=== PATIENT | female | born 1955 | race Caucasian/White ===

== ENCOUNTER 2016-06-17 09:45 | Inpatient (IN) | payer OTHER ==
[~2016-06-17] VITALS: Ht 157.5 cm; Wt 93.1 kg
[~2016-06-17 09:45] MED LIST: ALEVE220 M1 PO; ALL DAY ALLERGY10 M3 PO; ASPIRIN325 MG PO; CHANTIX0.5 MG PO; FLEXERIL 10 MG10 MG PO; KEPPRA250 MG PO; LISINOPRIL20 MG PO; MELOXICAM15 MG PO; PERCOCET 10-321 EACH PO; VENTOLIN HFA 66.7 GM INH; VENTOLIN/PROVE0.5 ML INH; VITAMIN D5000 UNIT PO; XARELTO10 MG PO; ZOFRAN4 MG PO
[2016-07-15] MEDS ORDERED: MOBIC15 MG PO (07:01)
[2016-07-15] MEDS ORDERED: SINGULAIR10 MG PO (07:02)
[2016-07-16 15:00] LABS: HEMOGLOBIN 11.6 gm/dl (12.3-15.3); RED BLOOD COUNT 3.95 M/UL (4.00-5.10); WHITE BLOOD COUNT 11.2 K/UL (4.5-11.0)
[2016-07-16 15:15] LABS: BUN/CREATININE RATIO 18 (0-10)
[2016-07-17] MEDS ORDERED: ELIQUIS2.5 MG PO (13:39)
[2016-07-17] MEDS ORDERED: PERCOCET 10-321 EACH PO (13:40)
[2016-07-17 14:05] LABS: HEMOGLOBIN 11.6 gm/dl (12.3-15.3); RED BLOOD COUNT 3.94 M/UL (4.00-5.10); WHITE BLOOD COUNT 10.7 K/UL (4.5-11.0)
[2016-07-17 14:26] LABS: BUN/CREATININE RATIO 25 (0-10)
== END 2016-07-17 18:42 | disposition home or self-care (01) | DRG 470 ==
LOC: ZOBSOF 07-15 06:02 → M/S 07-15 18:30
PROVIDERS: ADMIT Orthopaedic Surgery
PROC: 0SRC0J9 Replacement of Right Knee Joint with Synthetic Substitute, Cemented, Open Approach (ICD-10-PCS; principal; 2016-07-15 08:15)
DX: M17.11 Unilateral primary osteoarthritis, right knee (principal); I10 Essential (primary) hypertension; E55.9 Vitamin D deficiency, unspecified; E03.9 Hypothyroidism, unspecified; Z96.652 Presence of left artificial knee joint; M41.9 Scoliosis, unspecified; F17.210 Nicotine dependence, cigarettes, uncomplicated; I95.81 Postprocedural hypotension; R55 Syncope and collapse
CPT/HCPCS: 36415; 73560; 80048; 80051; 82550; 82553; 82565; 84484; 84520; 85025; 86850; 86900; 86901; 93005; 94664; 97116; 97530; 97535; C1776; J0461; J0690; J2250; J2270; J2795; J3010; J7030; J7050; J7120

== ENCOUNTER → 2016-07-01 | Outpatient (CLI) | payer OTHER ==
[~2016-07-01] MED LIST changes: +ELIQUIS2.5 MG PO; +MOBIC15 MG PO; +SINGULAIR10 MG PO
[2016-07-01 10:25] LABS: HEMOGLOBIN 14.7 gm/dl (12.3-15.3); RED BLOOD COUNT 5.04 M/UL (4.00-5.10); WHITE BLOOD COUNT 8.5 K/UL (4.5-11.0)
[2016-07-01 10:49] LABS: BUN/CREATININE RATIO 38 (0-10)
== END ==
LOC: OPSV2 06-09 08:30
PROVIDERS: Orthopaedic Surgery
DX: Z01.810 Encounter for preprocedural cardiovascular examination (principal); Z01.812 Encounter for preprocedural laboratory examination; M17.11 Unilateral primary osteoarthritis, right knee; I10 Essential (primary) hypertension; Z88.6 Allergy status to analgesic agent; Z88.3 Allergy status to other anti-infective agents
CPT/HCPCS: 36415; 80048; 81001; 85025; 87081; 93005

== ENCOUNTER → 2020-03-13 | Outpatient (CLI) | payer MEDICARE, OTHER ==
[~2020-03-13] MED LIST changes: +ARTHRITIS PAIN100 GM TP; +ASPIRIN 325MG325 MG PO; +AUGMENTIN 875-1 EACH PO; +AZITHROMYCIN500 MG PO; +DOXYCYCLINE HY100 M2 PO; +ESSENTIAL DAIL1 EACH PO; +HYDROCHLOROTH12.5 MG PO; +HYDROCODON-ACE1 EAC4 PO; +INCRUSE ELLI62.5 MCG INH; +LISINOPRIL40 MG PO; +MIRALAX17 GM PO; +NAPROXEN 250 M250 MG PO; +NORCO 5-325 TA1 EACH PO; +PREDNISONE20 MG PO; +RELAFEN 750 MG750 MG PO; +SPIRIVA18 MCG INH; +VITAMIN D3100 MCG PO; +ZITHROMAX250 MG PO
[2020-03-13 10:00] LABS: HEMOGLOBIN 15.4 gm/dl (12.3-15.3); RED BLOOD COUNT 4.9 M/UL (4.00-5.10); WHITE BLOOD COUNT 8.2 K/UL (4.5-11.0)
[2020-03-13 10:14] LABS: BUN/CREATININE RATIO 41 (0-10)
== END ==
LOC: OPSV2 09:00
PROVIDERS: Anesthesiology; Obstetrics & Gynecology
DX: Z01.812 Encounter for preprocedural laboratory examination (principal); N81.6 Rectocele; I10 Essential (primary) hypertension
CPT/HCPCS: 36415; 71046; 80048; 81001; 85025; 87086

== ENCOUNTER 2020-03-21 08:03 | Observation (INO) | payer MEDICARE, OTHER ==
[~2020-03-21] VITALS: Ht 160 cm; Wt 83.9 kg
[~2020-03-21 08:03] MED LIST changes: -ARTHRITIS PAIN100 GM TP; -DOXYCYCLINE HY100 M2 PO; -HYDROCHLOROTH12.5 MG PO; -HYDROCODON-ACE1 EAC4 PO; -INCRUSE ELLI62.5 MCG INH; -LISINOPRIL40 MG PO; -VITAMIN D3100 MCG PO
[2020-03-21] MEDS ORDERED: ARTHRITIS PAIN100 GM TP (08:41)
[2020-03-21] MEDS ORDERED: INCRUSE ELLI62.5 MCG INH (08:41)
[2020-03-21] MEDS ORDERED: LISINOPRIL40 MG PO (08:42)
[2020-03-21] MEDS ORDERED: HYDROCHLOROTH12.5 MG PO (08:42)
[2020-03-21] MEDS ORDERED: ALEVE220 M1 PO (08:43)
[2020-03-21] MEDS ORDERED: VITAMIN D3100 MCG PO (08:43)
[2020-03-21] MEDS ORDERED: HYDROCODON-ACE1 EAC4 PO (11:57)
[2020-03-22 12:56] LABS: HEMOGLOBIN 14.3 gm/dl (12.3-15.3)
[2020-03-22 13:19] LABS: BUN/CREATININE RATIO 29 (0-10)
[2020-03-22] MEDS ORDERED: DOXYCYCLINE HY100 M2 PO (14:57)
== END 2020-03-23 16:59 | disposition home or self-care (01) ==
LOC: OR 08:03 → OB 12:59 → OR 03-22 12:32 → OB 03-23 16:59
PROVIDERS: Nurse Practitioner Family; ADMIT Obstetrics & Gynecology
DX: N81.3 Complete uterovaginal prolapse (principal); I10 Essential (primary) hypertension; E78.5 Hyperlipidemia, unspecified; F17.210 Nicotine dependence, cigarettes, uncomplicated; I25.2 Old myocardial infarction; J18.9 Pneumonia, unspecified organism; E66.9 Obesity, unspecified; M19.012 Primary osteoarthritis, left shoulder; M19.011 Primary osteoarthritis, right shoulder; Z79.899 Other long term (current) drug therapy; Z83.3 Family history of diabetes mellitus; Z82.49 Family history of ischemic heart disease and other diseases of the circulatory system; Z82.3 Family history of stroke; Z20.822 Contact with and (suspected) exposure to COVID-19; Z68.34 Body mass index [BMI] 34.0-34.9, adult
CPT/HCPCS: 36415; 71045; 80048; 85014; 85018; 88341; 88342; 88344; 94640; 94664; 94760; 96374; 96375; 96376; C1769; C1771; G0378; J0456; J0690; J0696; J1100; J1170; J1885; J2001; J2250; J2405; J2550; J2704; J2795; J2930; J3010; J7030; J7120; U0002

== ENCOUNTER → 2020-06-01 | Outpatient (CLI) | payer MEDICARE, OTHER ==
[~2020-06-01] MED LIST changes: +ARTHRITIS PAIN100 GM TP; +DOXYCYCLINE HY100 M2 PO; +HYDROCHLOROTH12.5 MG PO; +HYDROCODON-ACE1 EAC4 PO; +INCRUSE ELLI62.5 MCG INH; +LISINOPRIL40 MG PO; +VITAMIN D3100 MCG PO
== END ==
LOC: HEART 5 09:54
DX: J44.9 Chronic obstructive pulmonary disease, unspecified (principal); R94.2 Abnormal results of pulmonary function studies
CPT/HCPCS: 94010

== ENCOUNTER 2020-07-30 00:11 | Emergency (ER) | payer MEDICARE, OTHER | END 2020-07-30 02:13 | disposition left against medical advice (07) | LOC: ER1 00:11 | DX: Z53.21 Procedure and treatment not carried out due to patient leaving prior to being seen by health care provider (principal) | CPT/HCPCS: 93005 ==